=== PATIENT | female | born 2000 | race Caucasian/White ===

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

== ENCOUNTER 2021-03-14 09:25 | Outpatient (REF) | payer MEDICAID, SELFPAY ==
[2021-03-17 16:04] LABS: Chlamydia Result Negative (Negative); GC Result Negative (Negative)
== END 2021-03-14 09:26 | disposition home or self-care (01) ==
LOC: NCHCN 09:25
PROVIDERS: PCP Family Medicine; Visit Provider Family Medicine
DX: Z11.3 Encounter for screening for infections with a predominantly sexual mode of transmission (principal)
CPT/HCPCS: 87491; 87591

== ENCOUNTER 2022-03-18 15:00 | Outpatient (REF) | payer MEDICAID, SELFPAY ==
--- NOTE | 2022-03-18 13:20 | PAPFT_PTH ---
PATIENT: Rebecca Way LOC: [facility] U#:[id number] AGE/SX: 21/F ROOM: RE03/18/[address]: Teodora Branham : 2000 BED: DIS: 03/18/2022 SPEC #: [id number] RECD: 03/19/22 12:49 STATUS: HUGO REQ #: [id number] ENEDINA: 03/18/22 13:[address]: Teodora Branham [facility]PT[facility] Cytology RECD BY: Betty Coffman Tissues: 1 - CX/ENDOCX FOR PAP SMEARS Procedures: PAP THIN PREP/[facility] Screening Comments: [id number]
== END 2022-03-18 15:01 | disposition home or self-care (01) ==
LOC: NCHCN 15:00
PROVIDERS: PCP Family Medicine; Visit Provider Family Medicine
DX: Z12.4 Encounter for screening for malignant neoplasm of cervix (principal)
CPT/HCPCS: 88142